=== PATIENT | female | born 1970 | race Caucasian/White ===

== ENCOUNTER 2020-05-27 10:24 | Outpatient (CLI) | payer BC, SELFPAY ==
--- NOTE | 2020-05-28 20:47 | ONC CON_ITS ---
Dr. Negron New Patient Note Patient: Namita Diaz Unit #: [id number]: 1970 Dicatated By: Abhijit Negron M.D.Date of Visit: May 27, 2020 Onc MED New Patient/Consult Referring Physician: Eduardo Mcleod Chief Complaint: Polycythemia rubra vera. History of Present Illness: This is a 50 year-old woman with polycythemia rubra vera, JAK2 mutation positive. She had initially been diagnosed with essential thrombocythemia in 2013. In June 2015 she underwent evaluation at [facility] in [facility]. Her CBC at that time showed elevated hemoglobin at 17.6 g with hematocrit 55.3%, white blood cell count 9700, and platelet count 735,000. Bone marrow aspiration/biopsy showed cellularity at 60 to 70%. Blasts were not increased. Reticulin and trichrome stains showed no increased fibrosis. Cytogenetics were normal. 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 The erythropoietin level was low at 1.0 mIU/mL. The findings were consistent with polycythemia rubra vera. Due to her young age, hydroxyurea was not recommended. She underwent red cell apheresis and she then began phlebotomies. In 2015 she did begin a trial of therapy with hydroxyurea, continued for less than a year because it made her feel worse. She was then interested in attempting a trial of therapy with pegylated interferon, but it was denied by her insurance carrier. She restarted hydroxyurea in January 2018, but continued only briefly due to side effects. Her management has otherwise been limited to phlebotomies and aspirin prophylaxis. The phlebotomies have been problematic due to associated iron deficiency. As such, her hematocrit levels have remained above target range. However, she has experienced no thromboembolic complications. Her other medical illnesses include hypertension, GERD, obstructive sleep apnea, restless leg syndrome, degenerative disease of the spine, and anxiety/depression. She is a non-smoker. She does report having some fatigue, but she says it is not debilitating. Her ECOG score is 1. She has good appetite. She has no fever or night sweats, and she does not complain of itching. She complains that her eyes stay bloodshot. She is on CPAP for the obstructive sleep apnea. She does not complain of shortness of breath, cough, or chest pain. Her acid reflux is managed adequately with [id number] omeprazole. She reports having frequent urination. She tends to get some bone pain in her legs when her blood count is too high. She has no other joint or bone pain. She has headache 2-3 times a week. She occasionally has dizziness. She has no focal neurologic symptoms. Past Medical History: Her medical history includes anxiety/depression, degenerative disease of the spine, hypertension, obstructive sleep apnea, polycythemia rubra vera, and restless leg syndrome. Past Surgical History: Her surgical/procedural history includes lumbar laminectomy with L5-S1 fusion in 2013, hysterectomy/bilateral salpingectomy-oophorectomy in 2013, and cervical laminectomy with C3, C4, and C5 fusion in 2009. Medications: Aspirin 1 Tablet (of 81 mg) Tablet, enteric coated Oral daily, Citalopram Hydrobromide 1 Tablet (of 40 mg) Oral daily, clonazePAM 1 Tablet (of 0.5 mg) Oral daily, hydroCHLOROthiazide 1 Tablet (of 25 mg) Oral daily, Omeprazole 1 Tablet (of 20 mg) Tablet, enteric coated Oral daily, rOPINIRole HCl 1 Tablet (of 1 mg) Oral t.i.d. Allergies: oxyCODONE HCl and Percocet. Social History: Ms. Diaz is . She is employed as a patient strategic accounts manager. She is a non-smoker. She has just occasional alcohol use. Family History: Father is alive at age 86. She does not know about his health. Mother is 82 and has hypertension. She has no siblings. A maternal aunt of lung cancer. Review Of Symptoms: Constitutional - She has some fatigue. She generally has been less active since she has been working at home. Her appetite is good. Her weight is up a little. No fever, night sweats, or hot flashes. She does not complain of itching. ECOG score is 0, Eyes - No change in vision, but she says her eyes stay bloodshot with the polycythemia, ENMT - No hearing loss or tinnitus. No sinus congestion/drainage. No mouth sores. No sore throat or difficulty swallowing, Hematologic/Lymphatic - She has easy bruising, Respiratory - No shortness of breath. No cough. No pleuritic pain or hemoptysis, Cardiovascular - No angina pain. No palpitations, Gastrointestinal - No nausea or vomiting. She has heartburn which she manages adequately with [id number] omeprazole. No diarrhea or constipation. No blood in the stool or black stools, Genitourinary (F) - No dysuria or hematuria. She has urinary frequency. No urgency or incontinence, Musculoskeletal - She has pain in her legs when her blood count is too high. She has no other joint or bone pain, Integumentary - No skin rash, Neurologic - She has been having headache 2 or 3 times a week. She occasionally or dizziness. No numbness or tingling. No other focal neurologic symptoms, Psychiatric - She has anxiety and depression, adequately managed. She does not sleep well. She is on CPAP. Vital Signs: Performed on May 27, 2020 10:55: 0, 32.67 (HIGH), 1.82 sq.m, 62.00 in, 98 %, 86 /min, 18 /min, 144/81 mm(hg) (HIGH), 98.8 F, and 178.6 lbs (HIGH). Physical Examination: Constitutional - She looks good generally, Eyes - Sclerae nonicteric. Conjunctivae clear, ENMT - No lesions noted in the oral cavity, Hematologic/Lymphatic - No cervical, clavicular, or axillary adenopathy, Respiratory - Lungs are clear with good air movement bilaterally, Cardiovascular - Heart rhythm is regular. There is no murmur, gallop, or rub noted, Abdomen - Soft and non-tender. Liver is not enlarged. I am not able to palpate the spleen. There is no abdominal mass or ascites noted and there is no inguinal adenopathy, Extremities - No edema. Dorsalis pedis pulses are palpable bilaterally, Integumentary - No rashes. No suspicious skin lesions noted, Neurologic - No focal neurologic deficits noted. Impression: 1. Patient with polycythemia rubra vera, JAK2 (V617F) mutation positive, initially diagnosed in June 2015, but apparently having evolved from essential thrombocythemia diagnosed in May 2014. 2. She has been managed primarily with phlebotomy and aspirin prophylaxis, hydroxyurea having been administered intermittently from October 2015 through August 2017, and then briefly in January 2018. 3. Her phlebotomies have been somewhat problematic due to associated iron deficiency. Her hemoglobin/hematocrit levels have been consistently above target range, but with no thromboembolic complications. Her other medical illnesses include: 4. Hypertension. 5. GERD. 6. Obstructive sleep apnea. 7. Degenerative disease of the spine. 8. Anxiety/depression. Plan: She is very knowledgeable regarding her condition and treatment options. For the time being she prefers to continue with her current phlebotomy regimen. She indicates that she may still be interested in attempting interferon therapy, particularly if and when a newer preparation becomes available (Rhopeg). We also talked about ruxolitinib, though I do not think that she would really meet criteria for it, as it does not appear that she actually failed on hydroxyurea. She indicates that she is interested in seeing an MPN specialist again, but someone that is located closer than [place]. As such, I will try and arrange for a referral to Dr. Stuart Riggs at [facility]. Signed By: Abhijit Negron M.D. <<Signature on File>>
== END 2020-05-27 10:25 | disposition home or self-care (01) ==
LOC: ONCMED 10:27
PROVIDERS: PCP Family Medicine; Visit Provider Internal Medicine Medical Oncology
DX: D45 Polycythemia vera (principal); I10 Essential (primary) hypertension; K21.9 Gastro-esophageal reflux disease without esophagitis; G47.33 Obstructive sleep apnea (adult) (pediatric); M47.9 Spondylosis, unspecified; F41.9 Anxiety disorder, unspecified; F32.9 Major depressive disorder, single episode, unspecified
CPT/HCPCS: 99204

== ENCOUNTER 2020-07-07 08:05 | Outpatient (CLI) | payer BC, SELFPAY ==
--- NOTE | 2020-07-07 08:09 | MM_ITS ---
WS: [id number] BILATERAL DIGITAL SCREENING MAMMOGRAPHY WITH CAD CLINICAL INFORMATION: SCREENING HISTORY: Screening mammogram. No current complaints. COMPARISON: October 21, 2015 TECHNIQUE: Bilateral CC and MLO views. FINDINGS: Scattered fibroglandular densities bilaterally. No suspicious focal mass, asymmetry, calcifications, or architectural distortion. No evidence of malignancy. MM/[place] [id number] IMPRESSION: BI-RADS: 1-Negative FOLLOW UP: 1 Year Follow-up Recommend return to annual screening mammography.
== END 2020-07-07 08:06 | disposition home or self-care (01) ==
LOC: RADSHAW 08:07
PROVIDERS: PCP Family Medicine; Visit Provider Family Medicine
DX: Z12.31 Encounter for screening mammogram for malignant neoplasm of breast (principal)
CPT/HCPCS: 77067

== ENCOUNTER 2020-07-12 07:04 | Outpatient (CLI) | payer BC, SELFPAY ==
--- NOTE | 2020-07-12 07:17 | US_ITS ---
WS: [id number] ULTRASOUND ABDOMEN LIMITED CLINICAL INFORMATION: EVAL LIVER AND SPLEEN, THROMBOCYTHEMIA COMPARISON: None. FINDINGS: Liver Size: Normal. Craniocaudal length: 15.0 cm. Echogenicity: Normal. Surface nodularity: None. Mass (size and location): None. Gallbladder Cholelithiasis Gallstones: Present Gallbladder sludge: None. Gallbladder wall thickening: None. Pericholecystic fluid: None. Sonographic Yun sign: Absent. Spleen Splenomegaly: Present Craniocaudal length: 16.1 cm. Abdominal aorta and IVC Visualized portions are normal. Ascites: None. US/US abdomen limited [id number] IMPRESSION: 1. Normal liver. 2. Splenomegaly measuring 16.1 CCM. 3. Cholelithiasis. No gallbladder wall thickening or pericholecystic fluid.
== END 2020-07-12 07:05 | disposition home or self-care (01) ==
PROVIDERS: PCP Family Medicine; Visit Provider Internal Medicine
DX: D47.3 Essential (hemorrhagic) thrombocythemia (principal); D45 Polycythemia vera; D50.9 Iron deficiency anemia, unspecified; R42 Dizziness and giddiness; R51.9 Headache, unspecified; R53.0 Neoplastic (malignant) related fatigue; R16.1 Splenomegaly, not elsewhere classified; K80.20 Calculus of gallbladder without cholecystitis without obstruction
CPT/HCPCS: 76705

== ENCOUNTER 2020-09-13 09:00 | Outpatient (CLI) | payer BC, SELFPAY ==
[2020-09-13 09:47] LABS: Basophils # 0.2 10^3/uL (0.0-0.1); Basophils % 1.2 %; Eosinophils # 0.8 10^3/uL (0.0-0.8); Hematocrit 48.3 % (37.0-47.0); Hemoglobin 13.7 g/dL (11.5-15.3); Lymphocytes # 1.5 10^3/uL (0.8-4.8); Lymphocytes % 11.3 %; Mean Corpuscular HGB Conc 28.4 g/dL (30.0-36.0); Mean Corpuscular Hemoglobin 20.4 pg (28.0-34.0); Mean Corpuscular Volume 71.8 fL (81-99); Mean Platelet Volume 9.8 fL (7.4-10.4); Monocytes # 0.3 10^3/uL (0.2-0.9); Monocytes % 2.6 %; Neutrophils # 10.12 10^3/uL (1.8-7.7); Neutrophils % 78.6 %; Nucleated Red Blood Cells % 0 %; Platelet Count 1062 10^3/cmm (130-400); Red Blood Count 6.73 10^6/uL (4.1-5.3); Red Cell Distribution Width 25.4 % (12.1-15.1); White Blood Count 12.9 10^3/uL (4.0-10.0)
[2020-09-13 10:06] LABS: Alanine Aminotransferase 16 U/L (0-33); Albumin Level 4.6 g/dL (3.5-5.2); Alkaline Phosphatase 99 IU/L (35-105); Anion Gap 13.7 (5-19); Aspartate Amino Transferase 27 U/L (0-32); Blood Urea Nitrogen 19 mg/dL (6-20); Calcium 9.1 mg/dL (8.5-10.5); Carbon Dioxide 30 mmol/L (22-29); Chloride 99 mmol/L (98-107); Ferritin 13 ng/mL (15-150); Globulin 3.1 g/dL (1.3-4.6); Glomerular Filtration Rate 75.9 mL/min (90-130); Glucose 102 mg/dL (65-115); Iron 43 ug/dL (37-145); Osmolality Calculated 290 mOsm/kg (285-295); Potassium 3.7 mmol/L (3.5-5.1); Sodium 139 mmol/L (136-145); Total Bilirubin 0.8 mg/dL (0.15-1.2); Total Iron Binding Capacity 390 mcg/dl; Total Protein 7.7 g/dL (6.6-8.7); Unsaturated Iron Binding 347 ug/dL (112-347)
--- NOTE | 2020-09-17 15:45 | ONC FU_ITS ---
Dr. Negron Patient Follow-Up Note Patient: Namita Diaz Unit #: [id number]: 1970 Dicatated By: Abhijit Negron M.D.Date of Visit:Sep 13, 2020 Onc Med Follow-up/Prog Note Chief Complaint: Polycythemia rubra vera. History of Present Illness: This is a 50 year-old woman with polycythemia rubra vera, JAK2 mutation positive. She had initially been diagnosed with essential thrombocythemia in 2013. In June 2015 she underwent evaluation at [facility] in [facility]. Her CBC at that time showed elevated hemoglobin at 17.6 g with hematocrit 55.3%, white blood cell count 9700, and platelet count 735,000. Bone marrow aspiration/biopsy showed cellularity at 60 to 70%. Blasts were not increased. Reticulin and trichrome stains showed no increased fibrosis. Cytogenetics were normal. 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 The erythropoietin level was low at 1.0 mIU/mL. The findings were consistent with polycythemia rubra vera. Due to her young age, hydroxyurea was not recommended. She underwent red cell apheresis and she then began phlebotomies. In 2015 she did begin a trial of therapy with hydroxyurea, continued for less than a year because it made her feel worse. She was then interested in attempting a trial of therapy with pegylated interferon, but it was denied by her insurance carrier. She restarted hydroxyurea in January 2018, but continued only briefly due to side effects. Her management was otherwise limited to phlebotomies and aspirin prophylaxis. The phlebotomies had been problematic due to associated iron deficiency. As such, her hematocrit levels had remained above target range. However, she had experienced no thromboembolic complications. I had seen her initially on 05/27/2020. Given her medication intolerances and complicated situation, I had recommended referral to a myeloproliferative disorder specialist. She was then seen by Dr. Stuart Riggs at [facility] on 07/24/2020. She did have a phlebotomy at the time of that visit. She had subsequently began treatment with ruxolitinib 10 mg twice daily. Her other medical illnesses include hypertension, GERD, obstructive sleep apnea, restless leg syndrome, degenerative disease of the spine, and anxiety/depression. She is a non-smoker. INTERIM HISTORY: She is seen for a follow-up visit. She thinks she might be feeling a little better since she started the ruxolitinib. She does complain that she feels tired out, but she still has normal activity. ECOG score is zero. Her appetite is good. Her weight is up a little. She does not have fever, night sweats, or itching. She has no shortness of breath, cough, or chest pain. She currently has no GI or complaints. She has no significant joint or bone pain. She has having restless leg symptoms, but just occasionally. She has had no severe episodes since she has been on the ruxolitinib. She has had a couple of headaches. She has had a little bit of dizziness, but just transiently. She has no focal neurologic symptoms. She reports having easy bruising, but that is the same. Medications: Aspirin 1 Tablet (of 81 mg) Tablet, enteric coated Oral daily, Citalopram Hydrobromide 1 Tablet (of 40 mg) Oral daily, clonazePAM 1 Tablet (of 0.5 mg) Oral daily, hydroCHLOROthiazide 1 Tablet (of 25 mg) Oral daily, Jakafi 1 Tablet (of 10 mg) Oral daily, Omeprazole 1 Tablet (of 20 mg) Tablet, enteric coated Oral daily, rOPINIRole HCl 1 Tablet (of 1 mg) Oral t.i.d. Allergies: oxyCODONE HCl and Percocet. Vital Signs: Performed on Sep 13, 2020 10:13 Height - 62.00 in Weight - 188.8 lbs (HIGH) BSA - 1.87 sq.m BMI - 34.53 (HIGH) Temperature - 98.0 F (LOW) Pulse - 72 /min Respiration - 18 /min BP - 147/83 mm(hg) (HIGH) O2 Sat - 98 % Pain - 0 Fatigue - 2 Physical Examination: Constitutional - She looks good generally, Eyes - Sclerae nonicteric. Conjunctivae clear, ENMT - No lesions noted in the oral cavity, Hematologic/Lymphatic - No cervical, clavicular, or axillary adenopathy, Respiratory - Lungs are clear with good air movement bilaterally, Cardiovascular - Heart rhythm is regular. There is no murmur, gallop, or rub noted, Abdomen - Soft. Liver is not enlarged. Spleen is not palpable. There is no abdominal mass or ascites noted and there is no inguinal adenopathy, Extremities - No edema, Neurologic - No focal neurologic deficits noted. Lab/Imaging: Test performed on Sep 13, 2020 09:20 Ferritin 13 ng/mL Iron 43 mcg/dL Sodium 139 mmol/L Iron Binding Capacity (TIBC) 390 mcg/dl Potassium 3.7 mmol/L % Iron Saturation 11.0 % Chloride 99 mmol/L CO2 30 mmol/L UIBC 347 mcg/dL Anion Gap 13.7 BUN 19 mg/dL Creatinine 0.8 mg/dL Cr Clearance (Est) 113.74 mL/min eGFR 75.9 mL/min Glucose 102 mg/dL Osmolality - Calculated 290 mOsm/kg Calcium 9.1 mg/dL Protein, Total 7.7 g/dL Albumin 4.6 g/dL Globulin 3.1 g/dL Bilirubin, Total 0.8 mg/dL ALT (SGPT) 16 U/L AST (SGOT) 27 U/L Alkaline Phosphatase 99 IU/L WBC 12.9 10 3/uL RBC 6.73 10 6/uL HGB 13.7 g/dL HCT 48.3 % MCV 71.8 fL MCH 20.4 pg MCHC 28.4 g/dL RDW 25.4 % Platelet Count 1062 10 3/cmm MPV 9.8 fL Neutrophils 10.12 10 3/uL Lymphocytes 1.5 10 3/uL Monocytes 0.3 10 3/uL Eosinophils 0.8 10 3/uL Basophils 0.2 10 3/uL Neutrophil % 78.6 % Lymphocyte % 11.3 % Monocyte % 2.6 % Eosinophil % 6.0 % Basophils % 1.2 % NRBC % 0 % Historic Problem List: 1. Polycythemia rubra vera, JAK2 (V617F) mutation positive, initially diagnosed in June 2015, but apparently having evolved from essential thrombocythemia diagnosed in May 2014. 2. She has been managed primarily with phlebotomy and aspirin prophylaxis, hydroxyurea having been administered intermittently from October 2015 through August 2017, and then briefly in January 2018. 3. She has had symptomatic iron deficiency associated with phlebotomies. 4. Hypertension. 5. GERD. 6. Obstructive sleep apnea. 7. Degenerative disease of the spine. 8. Anxiety/depression. Problems Addressed with this Encounter and Plan: Polycythemia rubra vera, JAK2 (V617F) mutation positive. She has symptomatic iron deficiency in association with phlebotomies. She has now started treatment with ruxolitinib 10 mg bid. She appears to be tolerating it well, but her blood counts have increased. With her hematocrit elevated at 48% she will be phlebotomized today. We have been in contact with Dr. Riggs's office and her ruxolitinib dosage will be adjusted and her followup there will be scheduled per their recommendation. Her blood counts will need to be rechecked at least monthly. Signed By: Abhijit Negron M.D. <<Signature on File>>
== END 2020-09-13 09:01 | disposition home or self-care (01) ==
LOC: ONCMED 09:02
PROVIDERS: PCP Family Medicine; Visit Provider Internal Medicine Medical Oncology
DX: D45 Polycythemia vera (principal); E61.1 Iron deficiency; Z79.899 Other long term (current) drug therapy; I10 Essential (primary) hypertension; K21.9 Gastro-esophageal reflux disease without esophagitis; G47.33 Obstructive sleep apnea (adult) (pediatric); F41.8 Other specified anxiety disorders
CPT/HCPCS: 36415; 80053; 82728; 83540; 83550; 85025; 99195; 99214

== ENCOUNTER 2020-11-29 11:30 | Outpatient (CLI) | payer BC, SELFPAY ==
[2020-11-29] MEDS: ferric carboxy (IVPB) 750 MG in sodium chloride 0.9% (100 ml) 100 ML 460 MG IV (11:57)
== END 2020-11-29 11:31 | disposition home or self-care (01) ==
LOC: ONCMED 11:32
PROVIDERS: PCP Family Medicine; Visit Provider Internal Medicine Hematology & Oncology
DX: D45 Polycythemia vera (principal)
CPT/HCPCS: 96365; J1439

== ENCOUNTER 2020-12-14 07:39 | Outpatient (CLI) | payer BC, SELFPAY ==
[2020-12-14 13:59] LABS: Basophils # 0.2 10^3/uL (0.0-0.1); Basophils % 1.2 %; Eosinophils % 5.7 %; Lymphocytes # 1.3 10^3/uL (0.8-4.8); Lymphocytes % 7.2 %; Mean Corpuscular HGB Conc 29.2 g/dL (30.0-36.0); Mean Corpuscular Hemoglobin 21.6 pg (28.0-34.0); Mean Corpuscular Volume 74.2 fL (81-99); Mean Platelet Volume 9.6 fL (7.4-10.4); Monocytes # 0.3 10^3/uL (0.2-0.9); Neutrophils # 14.44 10^3/uL (1.8-7.7); Neutrophils % 83.4 %; Nucleated Red Blood Cells % 0 %; Platelet Count 979 10^3/cmm (130-400); Red Blood Count 6.47 10^6/uL (4.1-5.3); Red Cell Distribution Width 29.2 % (12.1-15.1); White Blood Count 17.3 10^3/uL (4.0-10.0)
== END 2020-12-14 07:40 | disposition home or self-care (01) ==
PROVIDERS: PCP Family Medicine; Visit Provider Internal Medicine Medical Oncology
DX: D45 Polycythemia vera (principal)
CPT/HCPCS: 36415; 85025; 99195

== ENCOUNTER 2021-01-27 08:04 | Outpatient (CLI) | payer BC, SELFPAY ==
[2021-01-27 08:38] LABS: Basophils # 0.2 10^3/uL (0.0-0.1); Basophils % 1.3 %; Eosinophils % 6.5 %; Hematocrit 53.3 % (37.0-47.0); Hemoglobin 15.7 g/dL (11.5-15.3); Lymphocytes # 1.2 10^3/uL (0.8-4.8); Lymphocytes % 8.1 %; Mean Corpuscular HGB Conc 29.5 g/dL (30.0-36.0); Mean Corpuscular Hemoglobin 22.4 pg (28.0-34.0); Mean Platelet Volume 9.4 fL (7.4-10.4); Monocytes # 0.3 10^3/uL (0.2-0.9); Monocytes % 2.2 %; Neutrophils # 12.09 10^3/uL (1.8-7.7); Neutrophils % 81.2 %; Nucleated Red Blood Cells % 0 %; Platelet Count 919 10^3/cmm (130-400); Red Blood Count 7.01 10^6/uL (4.1-5.3); Red Cell Distribution Width 25.2 % (12.1-15.1); White Blood Count 14.9 10^3/uL (4.0-10.0)
--- NOTE | 2021-01-27 18:33 | ONC FU_ITS ---
Dr. Negron Patient Follow-Up Note Patient: Namita Diaz Unit #: [id number]: 1970 Dicatated By: Abhijit Negron M.D.Date of Visit:January 27, 2021 Onc Med Follow-up/Prog Note Chief Complaint: Polycythemia rubra vera. History of Present Illness: This is a 50 year-old woman with polycythemia rubra vera, JAK2 mutation positive. She had initially been diagnosed with essential thrombocythemia in 2013. In June 2015 she underwent evaluation at [facility] in [facility]. Her CBC at that time showed elevated hemoglobin at 17.6 g with hematocrit 55.3%, white blood cell count 9700, and platelet count 735,000. Bone marrow aspiration/biopsy showed cellularity at 60 to 70%. Blasts were not increased. Reticulin and trichrome stains showed no increased fibrosis. Cytogenetics were normal. 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 The erythropoietin level was low at 1.0 mIU/mL. The findings were consistent with polycythemia rubra vera. Due to her young age, hydroxyurea was not recommended. She underwent red cell apheresis and she then began phlebotomies. In 2015 she did begin a trial of therapy with hydroxyurea, continued for less than a year because it made her feel worse. She was then interested in attempting a trial of therapy with pegylated interferon, but it was denied by her insurance carrier. She restarted hydroxyurea in January 2018, but continued only briefly due to side effects. Her management was otherwise limited to phlebotomies and aspirin prophylaxis. The phlebotomies had been problematic due to associated iron deficiency. As such, her hematocrit levels had remained above target range. However, she had experienced no thromboembolic complications. I had seen her initially on 05/27/2020. Given her medication intolerances and complicated situation, I had recommended referral to a myeloproliferative disorder specialist. She was then seen by Dr. Stuart Riggs at [facility] on 07/24/2020. She did have a phlebotomy at the time of that visit. She had subsequently began treatment with ruxolitinib 10 mg twice daily. Her other medical illnesses include hypertension, GERD, obstructive sleep apnea, restless leg syndrome, degenerative disease of the spine, and anxiety/depression. She is a non-smoker. INTERIM HISTORY: I had seen her for followup on 09/13/2020. At that time she was starting to feel better. Her ruxolitinib dosage was subsequently increased to 15 mg twice daily. However, by the following month she opted to stop the ruxolitinib due to side effects, mainly weight gain, though she apparently had been responding well to it. She had a follow-up with Dr. Riggs in November. At that point she did not require phlebotomy. He had discussed the possibility of replenishing her iron stores due to her severe restless leg symptoms. He also discussed the possibility of participating in a clinical trial with hepcidin mimetic [id number]. Subsequent to that visit she returned here for parenteral iron replacement with a single dose of Injectafer, as she was intolerant of oral iron. She is seen for a follow-up visit. She says she has been feeling pretty bad. She describes her energy is nonexistent, though she has been working up to 50 hours a week. She says she just feels bad generally. Her ECOG score is 1. She has good appetite. She does not have fever or night sweats. She has had no mouth sores. She has no shortness of breath, cough, or chest pain. She has no GI or complaints. She sometimes has pain in her legs and she also sometimes has pain in her arms. Her restless leg symptoms have improved. She has occasional headache. She sometimes has dizziness. She has no numbness/paresthesia or other focal neurologic symptoms. She has been sleeping better taking trazodone at bedtime. Her depression is manageable with medication. Medications: Aspirin 1 Tablet (of 81 mg) Tablet, enteric coated Oral daily, Citalopram Hydrobromide 1 Tablet (of 40 mg) Oral daily, hydroCHLOROthiazide 1 Tablet (of 25 mg) Oral daily, Omeprazole 1 Tablet (of 20 mg) Tablet, enteric coated Oral daily, rOPINIRole HCl 1 Tablet (of 1 mg) Oral t.i.d. Allergies: oxyCODONE HCl and Percocet. Vital Signs: Performed on January 27, 2021 09:05 Height - 62.00 in Weight - 187.4 lbs (LOW) BSA - 1.86 sq.m BMI - 34.28 (HIGH) Temperature - 98.8 F Pulse - 74 /min Respiration - 18 /min BP - 122/81 mm(hg) O2 Sat - 98 % Pain - 0 Fatigue - 5 Physical Examination: Constitutional - She looks good generally, Eyes - Sclerae nonicteric. Conjunctivae clear, ENMT - No lesions noted in the oral cavity, Hematologic/Lymphatic - No cervical, clavicular, or axillary adenopathy, Respiratory - Lungs are clear with good air movement bilaterally, Cardiovascular - Heart rhythm is regular. There is no murmur, gallop, or rub noted, Abdomen - Soft. Liver is not enlarged. Spleen is not palpable. There is no abdominal mass or ascites noted and there is no inguinal adenopathy, Extremities - No edema, but she does have dependent discoloration of the lower legs and feet, Neurologic - No focal neurologic deficits noted. Lab/Imaging: Test performed on January 27, 2021 08:15 WBC 14.9 10 3/uL RBC 7.01 10 6/uL HGB 15.7 g/dL HCT 53.3 % MCV 76.0 fL MCH 22.4 pg MCHC 29.5 g/dL RDW 25.2 % Platelet Count 919 10 3/cmm MPV 9.4 fL Neutrophils 12.09 10 3/uL Lymphocytes 1.2 10 3/uL Monocytes 0.3 10 3/uL Eosinophils 1.0 10 3/uL Basophils 0.2 10 3/uL Neutrophil % 81.2 % Lymphocyte % 8.1 % Monocyte % 2.2 % Eosinophil % 6.5 % Basophils % 1.3 % NRBC % 0 % Problem List: 1. Polycythemia rubra vera, JAK2 (V617F) mutation positive, initially diagnosed in June 2015, but apparently having evolved from essential thrombocythemia diagnosed in May 2014. 2. She has had symptomatic iron deficiency associated with phlebotomies. 3. Hypertension. 4. GERD. 5. Obstructive sleep apnea. 6. Degenerative disease of the spine. 7. Anxiety/depression. Problems Addressed with this Encounter and Plan: 1. Patient with polycythemia rubra vera, JAK2 (V617F) mutation positive. She had previously been managed with phlebotomy due to intolerance for hydroxyurea. In July 2020 she began treatment with ruxolitinib 10 mg bid. She initially tolerated well, and in September 2020 her dosage was increased to 15 mg twice daily. By the following month she opted to stop treatment due to side effects, primarily weight gain, though she had been showing a good response. She returns now with her CBC showing pancytosis, including significantly elevated hemoglobin/hematocrit levels at 15.7 g at 53.3%. She will have a 1 unit phlebotomy today. Blood counts will be monitored every 2 weeks and she will be phlebotomized again as needed with her target hematocrit at < 45%. She is hoping to be eligible for the clinical trial at [facility], and she does have follow-up scheduled with Dr. Riggs in March. 2. She has had symptomatic iron deficiency associated with phlebotomies. Due to persistent worsening symptoms of restless leg syndrome, she was given parenteral iron replacement with a single infusion of Injectafer in November 2020. She has reported some improvement in her symptoms. Signed By: Abhijit Negron M.D. <<Signature on File>>
== END 2021-01-27 08:05 | disposition home or self-care (01) ==
PROVIDERS: PCP Family Medicine; Visit Provider Internal Medicine Medical Oncology
DX: D45 Polycythemia vera (principal); D50.9 Iron deficiency anemia, unspecified; I10 Essential (primary) hypertension; G47.33 Obstructive sleep apnea (adult) (pediatric); K21.9 Gastro-esophageal reflux disease without esophagitis; M47.9 Spondylosis, unspecified; F41.9 Anxiety disorder, unspecified; F32.9 Major depressive disorder, single episode, unspecified; Z79.899 Other long term (current) drug therapy; G25.81 Restless legs syndrome
CPT/HCPCS: 36415; 85025; 99195; 99214

== ENCOUNTER 2021-02-09 06:25 | Outpatient (CLI) | payer BC, SELFPAY ==
[2021-02-09 11:25] LABS: Basophils # 0.2 10^3/uL (0.0-0.1); Basophils % 1.2 %; Eosinophils # 0.9 10^3/uL (0.0-0.8); Hematocrit 50.3 % (37.0-47.0); Hemoglobin 14.7 g/dL (11.5-15.3); Lymphocytes # 1.4 10^3/uL (0.8-4.8); Lymphocytes % 8.9 %; Mean Corpuscular HGB Conc 29.2 g/dL (30.0-36.0); Mean Corpuscular Hemoglobin 22.2 pg (28.0-34.0); Mean Corpuscular Volume 75.9 fL (81-99); Mean Platelet Volume 9.6 fL (7.4-10.4); Monocytes # 0.3 10^3/uL (0.2-0.9); Monocytes % 1.8 %; Neutrophils # 12.55 10^3/uL (1.8-7.7); Neutrophils % 81.5 %; Nucleated Red Blood Cells % 0 %; Platelet Count 1016 10^3/cmm (130-400); Red Blood Count 6.63 10^6/uL (4.1-5.3); Red Cell Distribution Width 23.3 % (12.1-15.1); White Blood Count 15.4 10^3/uL (4.0-10.0)
== END 2021-02-09 06:26 | disposition home or self-care (01) ==
LOC: ONCMED 06:27
PROVIDERS: PCP Family Medicine; Visit Provider Internal Medicine Medical Oncology
DX: D45 Polycythemia vera (principal)
CPT/HCPCS: 85025; 99195

== ENCOUNTER 2021-03-09 10:19 | Outpatient (CLI) | payer BC, SELFPAY ==
[2021-03-09 10:47] LABS: Basophils # 0.2 10^3/uL (0.0-0.1); Basophils % 1.1 %; Eosinophils # 0.8 10^3/uL (0.0-0.8); Eosinophils % 5.7 %; Hematocrit 49.7 % (37.0-47.0); Hemoglobin 14.3 g/dL (11.5-15.3); Lymphocytes # 1.3 10^3/uL (0.8-4.8); Lymphocytes % 8.7 %; Mean Corpuscular HGB Conc 28.8 g/dL (30.0-36.0); Mean Corpuscular Hemoglobin 21.4 pg (28.0-34.0); Mean Corpuscular Volume 74.5 fL (81-99); Mean Platelet Volume 9.6 fL (7.4-10.4); Monocytes # 0.3 10^3/uL (0.2-0.9); Monocytes % 2.1 %; Neutrophils # 11.89 10^3/uL (1.8-7.7); Nucleated Red Blood Cells % 0 %; Platelet Count 936 10^3/cmm (130-400); Red Blood Count 6.67 10^6/uL (4.1-5.3); White Blood Count 14.5 10^3/uL (4.0-10.0)
== END 2021-03-09 10:20 | disposition home or self-care (01) ==
LOC: ONCMED 10:21
PROVIDERS: PCP Family Medicine; Visit Provider Internal Medicine Medical Oncology
DX: D45 Polycythemia vera (principal); Z79.899 Other long term (current) drug therapy
CPT/HCPCS: 36415; 85025; 99195

== ENCOUNTER 2021-04-13 10:28 | Outpatient (CLI) | payer BC, SELFPAY ==
[2021-04-13 11:02] LABS: Basophils # 0.2 10^3/uL (0.0-0.1); Basophils % 1.4 %; Eosinophils % 6.6 %; Hematocrit 51.3 % (37.0-47.0); Hemoglobin 14.6 g/dL (11.5-15.3); Lymphocytes # 1.3 10^3/uL (0.8-4.8); Lymphocytes % 8.6 %; Mean Corpuscular HGB Conc 28.5 g/dL (30.0-36.0); Mean Corpuscular Volume 73.9 fL (81-99); Mean Platelet Volume 9.7 fL (7.4-10.4); Monocytes # 0.4 10^3/uL (0.2-0.9); Monocytes % 2.6 %; Neutrophils # 11.71 10^3/uL (1.8-7.7); Neutrophils % 80.3 %; Nucleated Red Blood Cells % 0 %; Platelet Count 993 10^3/cmm (130-400); Red Blood Count 6.94 10^6/uL (4.1-5.3); White Blood Count 14.6 10^3/uL (4.0-10.0)
== END 2021-04-13 10:29 | disposition home or self-care (01) ==
LOC: ONCMED 10:30
PROVIDERS: PCP Family Medicine; Visit Provider Internal Medicine Medical Oncology
DX: D45 Polycythemia vera (principal); Z79.899 Other long term (current) drug therapy
CPT/HCPCS: 36415; 85025

== ENCOUNTER 2021-04-15 06:12 | Outpatient (CLI) | payer BC, SELFPAY | END 2021-04-15 06:13 | disposition home or self-care (01) | LOC: ONCMED 06:13 | PROVIDERS: PCP Family Medicine; Visit Provider Internal Medicine Hematology & Oncology | DX: D45 Polycythemia vera (principal); Z79.899 Other long term (current) drug therapy | CPT/HCPCS: 99195 ==

== ENCOUNTER 2021-04-27 06:09 | Outpatient (CLI) | payer BC, SELFPAY ==
[2021-04-27 11:12] LABS: Basophils # 0.2 10^3/uL (0.0-0.1); Basophils % 1.3 %; Eosinophils % 6.1 %; Hematocrit 47.6 % (37.0-47.0); Hemoglobin 13.5 g/dL (11.5-15.3); Lymphocytes # 1.3 10^3/uL (0.8-4.8); Mean Corpuscular HGB Conc 28.4 g/dL (30.0-36.0); Mean Corpuscular Hemoglobin 20.5 pg (28.0-34.0); Mean Corpuscular Volume 72.2 fl (81-99); Mean Platelet Volume 9.6 fL (7.4-10.4); Monocytes # 0.3 10^3/uL (0.2-0.9); Neutrophils # 12.98 10^3/uL (1.8-7.7); Nucleated Red Blood Cells % 0 %; Platelet Count 957 10^3/cmm (130-400); Red Blood Count 6.59 10^6/uL (4.1-5.3); Red Cell Distribution Width 19.8 % (12.1-15.1); White Blood Count 15.8 10^3/uL (4.0-10.0)
== END 2021-04-27 06:10 | disposition home or self-care (01) ==
LOC: ONCMED 06:14
PROVIDERS: PCP Family Medicine; Visit Provider Internal Medicine Medical Oncology
DX: D45 Polycythemia vera (principal); Z79.899 Other long term (current) drug therapy
CPT/HCPCS: 36415; 85025; 99195

== ENCOUNTER 2021-07-07 13:19 | Outpatient (CLI) | payer BC, SELFPAY ==
[2021-07-07 13:53] LABS: Basophils # 0.1 10^3/uL (0.0-0.1); Basophils % 1.4 %; Eosinophils # 0.8 10^3/uL (0.0-0.8); Eosinophils % 7.5 %; Hematocrit 49.1 % (37.0-47.0); Hemoglobin 13.7 g/dL (11.5-15.3); Lymphocytes # 1.2 10^3/uL (0.8-4.8); Lymphocytes % 11.3 %; Mean Corpuscular HGB Conc 27.9 g/dL (30.0-36.0); Mean Corpuscular Hemoglobin 20.1 pg (28.0-34.0); Mean Corpuscular Volume 71.9 fl (81-99); Mean Platelet Volume 9.2 fL (7.4-10.4); Monocytes # 0.2 10^3/uL (0.2-0.9); Monocytes % 1.9 %; Neutrophils # 7.85 10^3/uL (1.8-7.7); Neutrophils % 77.4 %; Nucleated Red Blood Cells % 0 %; Platelet Count 521 10^3/cmm (130-400); Red Blood Count 6.83 10^6/uL (4.1-5.3); Red Cell Distribution Width 23.1 % (12.1-15.1); White Blood Count 10.1 10^3/uL (4.0-10.0)
== END 2021-07-07 13:20 | disposition home or self-care (01) ==
LOC: ONCMED 13:23
PROVIDERS: PCP Family Medicine; Visit Provider Internal Medicine Medical Oncology
DX: D45 Polycythemia vera (principal)
CPT/HCPCS: 36415; 85025

== ENCOUNTER 2021-07-18 15:44 | Outpatient (CLI) | payer BC, SELFPAY | END 2021-07-18 15:45 | disposition home or self-care (01) | LOC: ONCMED 15:45 | PROVIDERS: PCP Family Medicine; Visit Provider Internal Medicine Hematology & Oncology | DX: D45 Polycythemia vera (principal) | CPT/HCPCS: 99195 ==

== ENCOUNTER 2021-09-22 08:06 | Outpatient (CLI) | payer BC, SELFPAY ==
[2021-09-22 08:56] LABS: Basophils # 0.1 10^3/uL (0.0-0.1); Basophils % 1.1 %; Eosinophils # 0.8 10^3/uL (0.0-0.8); Eosinophils % 6.7 %; Hematocrit 48.7 % (37.0-47.0); Hemoglobin 13.9 g/dL (11.5-15.3); Lymphocytes # 1.3 10^3/uL (0.8-4.8); Mean Corpuscular HGB Conc 28.5 g/dL (30.0-36.0); Mean Corpuscular Hemoglobin 20.6 pg (28.0-34.0); Mean Platelet Volume 9.6 fL (7.4-10.4); Monocytes # 0.3 10^3/uL (0.2-0.9); Monocytes % 2.4 %; Neutrophils # 9.57 10^3/uL (1.8-7.7); Neutrophils % 78.4 %; Nucleated Red Blood Cells % 0 %; Platelet Count 769 10^3/cmm (130-400); Red Blood Count 6.76 10^6/uL (4.1-5.3); Red Cell Distribution Width 20.3 % (12.1-15.1); White Blood Count 12.2 10^3/uL (4.0-10.0)
--- NOTE | 2021-09-22 12:36 | ONC FU_ITS ---
Dr. Negron Patient Follow-Up Note Patient: Namita Diaz Unit #: [id number]: 1970 Dicatated By: Abhijit Negron M.D.Date of Visit:Sep 22, 2021 Onc Med Follow-up/Prog Note Chief Complaint: Polycythemia rubra vera. History of Present Illness: This is a 51 year-old woman with polycythemia rubra vera, JAK2 mutation positive. She had initially been diagnosed with essential thrombocythemia in 2013. In June 2015 she underwent evaluation at [facility] in [facility]. Her CBC at that time showed elevated hemoglobin at 17.6 g with hematocrit 55.3%, white blood cell count 9700, and platelet count 735,000. Bone marrow aspiration/biopsy showed cellularity at 60 to 70%. Blasts were not increased. Reticulin and trichrome stains showed no increased fibrosis. Cytogenetics were normal. 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 The erythropoietin level was low at 1.0 mIU/mL. The findings were consistent with polycythemia rubra vera. Due to her young age, hydroxyurea was not recommended. She underwent red cell apheresis and she then began phlebotomies. In 2015 she did begin a trial of therapy with hydroxyurea, continued for less than a year because it made her feel worse. She was then interested in attempting a trial of therapy with pegylated interferon, but it was denied by her insurance carrier. She restarted hydroxyurea in January 2018, but continued only briefly due to side effects. Her management was otherwise limited to phlebotomies and aspirin prophylaxis. The phlebotomies had been problematic due to associated iron deficiency. As such, her hematocrit levels had remained above target range. However, she had experienced no thromboembolic complications. I had seen her initially on 05/27/2020. Given her medication intolerances and complicated situation, I had recommended referral to a myeloproliferative disorder specialist. She was then seen by Dr. Stuart Riggs at [facility] on 07/24/2020. She did have a phlebotomy at the time of that visit. She had subsequently began treatment with ruxolitinib 10 mg twice daily. I had seen her for followup on 09/13/2020. At that time she was starting to feel better. Her ruxolitinib dosage was subsequently increased to 15 mg twice daily. However, by the following month she opted to stop the ruxolitinib due to side effects, mainly weight gain, though she apparently had been responding well to it. She had a follow-up with Dr. Riggs in November. At that point she did not require phlebotomy. He had discussed the possibility of replenishing her iron stores due to her severe restless leg symptoms. He also discussed the possibility of participating in a clinical trial with hepcidin mimetic PTG-300. Subsequent to that visit she returned here for parenteral iron replacement with a single dose of Injectafer, as she was intolerant of oral iron. Her other medical illnesses include hypertension, GERD, obstructive sleep apnea, restless leg syndrome, degenerative disease of the spine, and anxiety/depression. She is a non-smoker. INTERIM HISTORY: As of her follow-up visit on 01/27/2021 she was still not feeling good generally. Her hemoglobin was significantly elevated at 15.7 g with hematocrit 53.3%, and she restarted phlebotomies. She is seen now for a scheduled visit. She is now back on hydroxyurea at 500 mg daily. She is scheduled to see Dr. Riggs next week and she is expecting to start treatment with ropeginterferon alpha-2b (Besremi), which has now been approved for use in [place]. She says her energy has mediocre, but she is working and she is doing all of her normal activities. ECOG score 0. She has good appetite. She has no fever or night sweats. She has not had sore mouth or throat. She does not complain of cough, and she has not been having shortness of breath or chest pain. She has no GI or complaints. She has no significant joint or bone pain. She does not complain of headache. Recently she has been having episodes of vertigo at least once or twice a day, but not lasting more than a minute. She has no focal neurologic symptoms. She has not experienced any abnormal bruising or bleeding. Medications: Aspirin 1 Tablet (of 81 mg) Tablet, enteric coated Oral daily, Citalopram Hydrobromide 1 Tablet (of 40 mg) Oral daily, hydroCHLOROthiazide 1 Tablet (of 25 mg) Oral daily, Omeprazole 1 Tablet (of 20 mg) Tablet, enteric coated Oral daily, rOPINIRole HCl 1 Tablet (of 1 mg) Oral t.i.d. Allergies: oxyCODONE HCl and Percocet. Vital Signs: Performed on Sep 22, 2021 10:32 Height - 62.00 in Weight - 187.2 lbs (LOW) BSA - 1.86 sq.m BMI - 34.24 (HIGH) Temperature - 97.1 F (LOW) Pulse - 82 /min Respiration - 18 /min BP - 125/85 mm(hg) O2 Sat - 97 % Pain - 0 Fatigue - 5 Physical Examination: Constitutional - She looks good generally, Eyes - Sclerae nonicteric. Conjunctivae clear, ENMT - No lesions noted in the oral cavity, Hematologic/Lymphatic - No cervical, clavicular, or axillary adenopathy, Respiratory - Lungs are clear with good air movement bilaterally, Cardiovascular - Heart rhythm is regular. There is no murmur, gallop, or rub noted, Abdomen - Soft. Liver is not enlarged. Spleen is palpable just below the costal margin. There is no abdominal mass or ascites noted and there is no inguinal adenopathy, Extremities - No edema, Neurologic - No focal neurologic deficits noted. Lab/Imaging: Test performed on Sep 22, 2021 08:36 WBC 12.2 10 3/uL RBC 6.76 10 6/uL HGB 13.9 g/dL HCT 48.7 % MCV 72.0 fl MCH 20.6 pg MCHC 28.5 g/dL RDW 20.3 % Platelet Count 769 10 3/cmm MPV 9.6 fL Neutrophils 9.57 10 3/uL Lymphocytes 1.3 10 3/uL Monocytes 0.3 10 3/uL Eosinophils 0.8 10 3/uL Basophils 0.1 10 3/uL Neutrophil % 78.4 % Lymphocyte % 11.0 % Monocyte % 2.4 % Eosinophil % 6.7 % Basophils % 1.1 % NRBC % 0 % Problem List: 1. Polycythemia rubra vera, JAK2 (V617F) mutation positive. 2. She has had symptomatic iron deficiency associated with phlebotomies. 3. Hypertension. 4. GERD. 5. Obstructive sleep apnea. 6. Degenerative disease of the spine. 7. Anxiety/depression. Problems Addressed with this Encounter and Plan: Patient with polycythemia rubra vera, JAK2 (V617F) mutation positive. It was initially diagnosed in June 2015, but it appeared to have evolved from pre-existing essential thrombocythemia, diagnosed in May 2014. She had previously been managed with phlebotomy due to intolerance for hydroxyurea. In July 2020 she began treatment with ruxolitinib 10 mg bid. She initially tolerated it well, and in September 2020 her dosage was increased to 15 mg twice daily. By the following month she opted to stop treatment due to side effects, primarily weight gain, though she had been showing a good response. As of her follow-up visit in January 2021 she restarted phlebotomies with her hemoglobin/hematocrit levels significantly elevated. She had subsequently restarted hydroxyurea at 500 mg daily. She has been feeling somewhat better generally. She will be phlebotomized again today, as her hemoglobin/hematocrit are still above target levels. She will have follow-up at [facility] next week, and at that point she is expecting to begin treatment with ropeginterferon alpha-2b. She will be seen here again per recommendations from Dr. Riggs. Signed By: Abhijit Negron M.D. <<Signature on File>>
== END 2021-09-22 08:07 | disposition home or self-care (01) ==
LOC: ONCMED 08:09
PROVIDERS: PCP Family Medicine; Visit Provider Internal Medicine Medical Oncology
DX: D45 Polycythemia vera (principal); D50.9 Iron deficiency anemia, unspecified; I10 Essential (primary) hypertension; K21.9 Gastro-esophageal reflux disease without esophagitis; G47.33 Obstructive sleep apnea (adult) (pediatric); M47.9 Spondylosis, unspecified; F41.9 Anxiety disorder, unspecified; F32.A Depression, unspecified; Z79.82 Long term (current) use of aspirin; Z79.899 Other long term (current) drug therapy
CPT/HCPCS: 36415; 85025; 99195; 99215

== ENCOUNTER 2021-11-16 13:50 | Outpatient (CLI) | payer BC, SELFPAY ==
[2021-11-16 14:56] LABS: Basophils # 0.1 10^3/uL (0.0-0.1); Basophils % 0.8 %; Eosinophils # 1.1 10^3/uL (0.0-0.8); Eosinophils % 6.7 %; Hematocrit 43.7 % (37.0-47.0); Hemoglobin 12.2 g/dL (11.5-15.3); Lymphocytes # 1.6 10^3/uL (0.8-4.8); Lymphocytes % 10.1 %; Mean Corpuscular HGB Conc 27.9 g/dL (30.0-36.0); Mean Corpuscular Hemoglobin 19.2 pg (28.0-34.0); Mean Corpuscular Volume 68.7 fl (81-99); Mean Platelet Volume 9.6 fL (7.4-10.4); Monocytes # 0.4 10^3/uL (0.2-0.9); Monocytes % 2.5 %; Neutrophils # 12.64 10^3/uL (1.8-7.7); Neutrophils % 79.5 %; Nucleated Red Blood Cells % 0 %; Platelet Count 963 10^3/cmm (130-400); Red Blood Count 6.36 10^6/uL (4.1-5.3); Red Cell Distribution Width 19.5 % (12.1-15.1); White Blood Count 15.9 10^3/uL (4.0-10.0)
== END 2021-11-16 13:51 | disposition home or self-care (01) ==
PROVIDERS: PCP Family Medicine; Visit Provider Internal Medicine Medical Oncology
DX: D69.6 Thrombocytopenia, unspecified (principal)
CPT/HCPCS: 36415; 85025

== ENCOUNTER 2021-12-14 12:50 | Outpatient (CLI) | payer BC, SELFPAY ==
[2021-12-14 13:18] LABS: Basophils # 0.1 10^3/uL (0.0-0.1); Basophils % 0.5 %; Eosinophils # 0.8 10^3/uL (0.0-0.8); Eosinophils % 5.6 %; Hematocrit 44.9 % (37.0-47.0); Hemoglobin 12.6 g/dL (11.5-15.3); Lymphocytes # 1.6 10^3/uL (0.8-4.8); Lymphocytes % 10.9 %; Mean Corpuscular HGB Conc 28.1 g/dL (30.0-36.0); Mean Corpuscular Hemoglobin 19.1 pg (28.0-34.0); Mean Corpuscular Volume 68.2 fl (81-99); Mean Platelet Volume 9.4 fL (7.4-10.4); Monocytes # 0.3 10^3/uL (0.2-0.9); Monocytes % 2.1 %; Neutrophils # 11.77 10^3/uL (1.8-7.7); Neutrophils % 80.3 %; Nucleated Red Blood Cells % 0 %; Platelet Count 935 10^3/cmm (130-400); Red Blood Count 6.58 10^6/uL (4.1-5.3); Red Cell Distribution Width 22.4 % (12.1-15.1); White Blood Count 14.7 10^3/uL (4.0-10.0)
== END 2021-12-14 12:51 | disposition home or self-care (01) ==
PROVIDERS: PCP Family Medicine; Visit Provider Internal Medicine Hematology & Oncology
DX: D45 Polycythemia vera (principal)
CPT/HCPCS: 36415; 85025

== ENCOUNTER 2022-01-11 09:53 | Oncology outpatient (recurring) (ONCR) | payer BC, SELFPAY ==
[2022-01-11 11:26] LABS: Basophils # 0.1 10^3/uL (0.0-0.1); Basophils % 0.5 %; Eosinophils # 0.9 10^3/uL (0.0-0.8); Eosinophils % 7.3 %; Hematocrit 51.8 % (37.0-47.0); Hemoglobin 14.4 g/dL (11.5-15.3); Lymphocytes # 1.4 10^3/uL (0.8-4.8); Lymphocytes % 11.2 %; Mean Corpuscular HGB Conc 27.8 g/dL (30.0-36.0); Mean Corpuscular Hemoglobin 19.4 pg (28.0-34.0); Mean Corpuscular Volume 69.7 fl (81-99); Monocytes # 0.2 10^3/uL (0.2-0.9); Monocytes % 1.9 %; Neutrophils % 78.4 %; Nucleated Red Blood Cells % 0 %; Platelet Count 763 10^3/cmm (130-400); Red Blood Count 7.43 10^6/uL (4.1-5.3); Red Cell Distribution Width 23.9 % (12.1-15.1); White Blood Count 12.5 10^3/uL (4.0-10.0)
[2022-01-11 12:00] VITALS: BP 117/80; PULSE 73; RESP 18; TEMP 36.8; O2SAT 98
== END 2022-02-07 23:59 | disposition home or self-care (01) ==
PROVIDERS: PCP Family Medicine; Visit Provider Internal Medicine Medical Oncology
DX: D45 Polycythemia vera (principal)
CPT/HCPCS: 36415; 85025; 99195

== ENCOUNTER 2022-02-08 07:43 | Outpatient (CLI) | payer BC, SELFPAY ==
--- NOTE | 2022-02-08 07:49 | MM_ITS ---
WS: [id number] Bilateral screening 3D tomosynthesis digital mammogram, 02/08/2022 Clinical Data: SCREENING Comparison: 07/07/2020, 10/21/2015, 09/04/2013. Findings: The breast parenchymal pattern shows fat replacement. No spiculated masses or clustered calcification s are seen. There are no secondary signs of carcinoma. MM/[place] [id number] Impression: 1. Negative bilateral mammogram unchanged. 2. Recommend annual screening mammograms. BIRADS: 1-Negative FOLLOW UP: 1 Year Follow-up The CAD electric distribution checker was used.
== END 2022-02-08 07:44 | disposition home or self-care (01) ==
LOC: RAD 07:46
PROVIDERS: PCP Family Medicine; Visit Provider Family Medicine
DX: Z12.31 Encounter for screening mammogram for malignant neoplasm of breast (principal)
CPT/HCPCS: 77063; 77067

== ENCOUNTER 2022-03-08 15:56 | Oncology outpatient (recurring) (ONCR) | payer BC, SELFPAY ==
[2022-03-08 17:12] LABS: Basophils # 0.1 10^3/uL (0.0-0.1); Basophils % 0.4 %; Eosinophils # 0.9 10^3/uL (0.0-0.8); Eosinophils % 7.6 %; Hematocrit 45.4 % (37.0-47.0); Hemoglobin 13.1 g/dL (11.5-15.3); Lymphocytes # 1.5 10^3/uL (0.8-4.8); Lymphocytes % 13.1 %; Mean Corpuscular HGB Conc 28.9 g/dL (30.0-36.0); Mean Corpuscular Hemoglobin 19.3 pg (28.0-34.0); Mean Corpuscular Volume 66.8 fl (81-99); Mean Platelet Volume 9.6 fL (7.4-10.4); Monocytes # 0.3 10^3/uL (0.2-0.9); Neutrophils # 8.44 10^3/uL (1.8-7.7); Neutrophils % 75.4 %; Nucleated Red Blood Cells % 0 %; Platelet Count 675 10^3/cmm (130-400); Red Cell Distribution Width 21.2 % (12.1-15.1); White Blood Count 11.2 10^3/uL (4.0-10.0)
== END 2022-03-09 23:59 | disposition home or self-care (01) ==
PROVIDERS: PCP Family Medicine; Visit Provider Internal Medicine Medical Oncology
DX: D45 Polycythemia vera (principal)
CPT/HCPCS: 85025

== ENCOUNTER 2022-04-17 13:55 | Oncology outpatient (recurring) (ONCR) | payer BC, SELFPAY ==
[2022-04-17 14:36] LABS: Basophils % 0.4 %; Eosinophils # 0.7 10^3/uL (0.0-0.8); Eosinophils % 7.3 %; Hemoglobin 13.2 g/dL (11.5-15.3); Lymphocytes # 1.3 10^3/uL (0.8-4.8); Lymphocytes % 13.1 %; Mean Corpuscular HGB Conc 28.7 g/dL (30.0-36.0); Mean Corpuscular Hemoglobin 19.8 pg (28.0-34.0); Mean Corpuscular Volume 69.2 fl (81-99); Mean Platelet Volume 9.3 fL (7.4-10.4); Monocytes # 0.3 10^3/uL (0.2-0.9); Monocytes % 2.7 %; Neutrophils # 7.74 10^3/uL (1.8-7.7); Nucleated Red Blood Cells % 0 %; Platelet Count 564 10^3/cmm (130-400); Red Blood Count 6.65 10^6/uL (4.1-5.3); Red Cell Distribution Width 22.2 % (12.1-15.1); White Blood Count 10.2 10^3/uL (4.0-10.0)
== END 2022-05-10 23:59 | disposition home or self-care (01) ==
PROVIDERS: PCP Family Medicine; Visit Provider Internal Medicine Medical Oncology
DX: D75.1 Secondary polycythemia (principal)
CPT/HCPCS: 36415; 85025; 99195

== ENCOUNTER 2022-06-06 14:54 | Oncology outpatient (recurring) (ONCR) | payer BC, SELFPAY ==
[2022-06-06 15:15] LABS: Basophils % 0.4 %; Eosinophils # 0.8 10^3/uL (0.0-0.8); Eosinophils % 8.4 %; Hematocrit 44.7 % (37.0-47.0); Hemoglobin 12.8 g/dL (11.5-15.3); Lymphocytes # 1.2 10^3/uL (0.8-4.8); Lymphocytes % 11.7 %; Mean Corpuscular HGB Conc 28.6 g/dL (30.0-36.0); Mean Corpuscular Hemoglobin 20.3 pg (28.0-34.0); Mean Platelet Volume 9.6 fL (7.4-10.4); Monocytes # 0.3 10^3/uL (0.2-0.9); Monocytes % 2.7 %; Neutrophils # 7.48 10^3/uL (1.8-7.7); Neutrophils % 76.4 %; Nucleated Red Blood Cells % 0 %; Platelet Count 576 10^3/cmm (130-400); Red Cell Distribution Width 21.3 % (12.1-15.1); White Blood Count 9.8 10^3/uL (4.0-10.0)
== END 2022-06-09 23:59 | disposition home or self-care (01) ==
PROVIDERS: PCP Family Medicine; Visit Provider Internal Medicine Medical Oncology
DX: D75.1 Secondary polycythemia (principal)
CPT/HCPCS: 36415; 85025

== ENCOUNTER 2022-06-20 15:00 | Oncology outpatient (recurring) (ONCR) | payer BC, SELFPAY ==
[2022-06-20 15:24] VITALS: BP 140/93; PULSE 75; RESP 18; TEMP 36.8; O2SAT 98
[2022-06-20 15:39] LABS: Basophils # 0.1 10^3/uL (0.0-0.1); Basophils % 0.6 %; Eosinophils # 0.6 10^3/uL (0.0-0.8); Eosinophils % 6.4 %; Hematocrit 44.3 % (37.0-47.0); Hemoglobin 12.9 g/dL (11.5-15.3); Lymphocytes # 1.1 10^3/uL (0.8-4.8); Lymphocytes % 11.3 %; Mean Corpuscular HGB Conc 29.1 g/dL (30.0-36.0); Mean Corpuscular Hemoglobin 20.3 pg (28.0-34.0); Mean Corpuscular Volume 69.9 fl (81-99); Mean Platelet Volume 9.7 fL (7.4-10.4); Monocytes # 0.3 10^3/uL (0.2-0.9); Monocytes % 2.8 %; Neutrophils # 7.77 10^3/uL (1.8-7.7); Neutrophils % 78.5 %; Nucleated Red Blood Cells % 0 %; Platelet Count 513 10^3/cmm (130-400); Red Blood Count 6.34 10^6/uL (4.1-5.3); White Blood Count 9.9 10^3/uL (4.0-10.0)
[2022-06-20 15:55] VITALS: BP 140/78; PULSE 75; RESP 18; TEMP 36.8; O2SAT 98
--- NOTE | 2022-06-20 15:57 | PC.NURSE ---
Dr Negron aware of the lab draw today with results reviewed. HCt 44.3 No phlebotomy required with the results reviewed with patient. copy given . She is aware of the follow up.mm
== END 2022-07-10 23:59 | disposition home or self-care (01) ==
LOC: ONCMED 15:02
PROVIDERS: PCP Family Medicine; Visit Provider Internal Medicine Medical Oncology
DX: D75.1 Secondary polycythemia (principal)
CPT/HCPCS: 85025

== ENCOUNTER 2022-07-27 14:56 | Oncology outpatient (recurring) (ONCR) | payer BC, SELFPAY ==
[2022-07-27 15:15] LABS: Basophils % 0.5 %; Eosinophils # 0.7 10^3/uL (0.0-0.8); Eosinophils % 7.5 %; Hematocrit 45.6 % (37.0-47.0); Lymphocytes # 1.2 10^3/uL (0.8-4.8); Lymphocytes % 13.4 %; Mean Corpuscular HGB Conc 28.5 g/dL (30.0-36.0); Mean Corpuscular Hemoglobin 20.1 pg (28.0-34.0); Mean Corpuscular Volume 70.6 fl (81-99); Mean Platelet Volume 9.6 fL (7.4-10.4); Monocytes # 0.2 10^3/uL (0.2-0.9); Monocytes % 2.6 %; Neutrophils # 6.62 10^3/uL (1.8-7.7); Neutrophils % 75.4 %; Nucleated Red Blood Cells % 0 %; Platelet Count 471 10^3/cmm (130-400); Red Blood Count 6.46 10^6/uL (4.1-5.3); Red Cell Distribution Width 20.7 % (12.1-15.1); White Blood Count 8.8 10^3/uL (4.0-10.0)
== END 2022-08-09 23:59 | disposition home or self-care (01) ==
PROVIDERS: PCP Family Medicine; Visit Provider Internal Medicine Medical Oncology
DX: D45 Polycythemia vera
CPT/HCPCS: 36415; 85025; 99195

== ENCOUNTER 2025-04-15 09:58 | Outpatient (CLI) | payer BC, SELFPAY ==
--- NOTE | 2025-04-15 10:06 | MM_ITS ---
WS: [id number] BILATERAL SCREENING DIGITAL TOMOSYNTHESIS MAMMOGRAM WITH CAD HISTORY: SCREEN COMPARISON: None available. Bilateral CC and MLO views with tomosynthesis and synthetic mammography submitted. Computer aided detection analyzed. Breast composition: There are scattered areas of fibroglandular density. No suspicious masses, microcalcifications or architectural distortion. Benign scattered calcifications in each breast. MM/MM scr BI tomosynthesis [id number] IMPRESSION: BI-RADS: 2 - Benign. FOLLOW UP: 1 Year Follow-up
== END 2025-04-15 09:59 | disposition home or self-care (01) ==
LOC: RAD 09:59
PROVIDERS: PCP Family Medicine; Visit Provider Nurse Practitioner Family
DX: Z12.31 Encounter for screening mammogram for malignant neoplasm of breast (principal); R92.323 Mammographic fibroglandular density, bilateral breasts
CPT/HCPCS: 77063; 77067

== ENCOUNTER 2025-04-27 07:41 | Outpatient (CLI) | payer BC, SELFPAY ==
--- NOTE | 2025-04-27 07:46 | US_ITS ---
WS: [id number] Gallbladder and right upper quadrant ultrasound, Clinical Data: ABNORMAL LEVELS OF OTHER SERUM ENZYMES Comparison: Abdominal ultrasound, 07/12/2020 Findings: The gallbladder shows a large stone. The wall measures 0.4 cm with no pericholecystic fluid. The common bile duct is 0.5 cm and there are no intrahepatic ductal abnormalities. Liver shows no cysts, masses or dilated intrahepatic ducts. The portal vein shows hepatopetal flow with normal diameter of 1.1 cm. The pancreas is not obscured by overlying bowel gas and no cyst, pseudocyst, or evidence of pancreatitis is noted. Right kidney measures 10.2 cm and no cyst, masses or hydronephrosis can be seen. The aorta and inferior vena cava show no vascular abnormalities. US/US abdomen limited [id number] Impression: 1. Large gallstone neck of gallbladder. 2. Thickened gallbladder wall which can indicate acute and/or chronic cholecyst itis.
== END 2025-04-27 07:42 | disposition home or self-care (01) ==
LOC: RAD 07:42
PROVIDERS: PCP Nurse Practitioner Family; Visit Provider Nurse Practitioner Family
DX: R74.8 Abnormal levels of other serum enzymes (principal); K80.20 Calculus of gallbladder without cholecystitis without obstruction; R93.3 Abnormal findings on diagnostic imaging of other parts of digestive tract
CPT/HCPCS: 76705

== ENCOUNTER 2025-05-20 14:22 | Outpatient (CLI) | payer BC, SELFPAY ==
[2025-05-20 14:59] LABS: Anion Gap 16.9 (5-19); Blood Urea Nitrogen 16 mg/dL (6-20); Calcium 9.2 mg/dL (8.5-10.5); Carbon Dioxide 25 mmol/L (22-29); Chloride 97 mmol/L (98-107); Glucose 115 mg/dL (65-115); Osmolality Calculated 282 mOsm/kg (285-295); Potassium 3.9 mmol/L (3.5-5.1); Sodium 135 mmol/L (136-145)
== END 2025-05-20 14:23 | disposition home or self-care (01) ==
PROVIDERS: PCP Nurse Practitioner Family; Visit Provider Nurse Practitioner Family
DX: E87.6 Hypokalemia (principal)
CPT/HCPCS: 36415; 80048

== ENCOUNTER 2025-07-25 07:41 | Day surgery (SDC) | payer BC, SELFPAY ==
[2025-07-25] VITALS (15 sets, daily range): BP systolic 100–192; BP diastolic 63–121; PULSE 74–115; RESP 16–18; TEMP 36.6–36.9; O2SAT 89–97; BMI 40.2
--- NOTE | 2025-07-25 08:22 | W.ED.ABDPA2 ---
HPI - Abdominal Pain General: Chief Complaint: Abdominal Pain Stated Complaint: RT mid abd pain Time Seen by Provider: 07/25/25 08:14 History of Present Illness: 55-year-old female presents emergency room with complaint of abdominal pain she localizes to the epigastrium and the right upper quadrant she has a known history of cholelithiasis has had some mild Анна cystitis in the past she has seen general surgery and opted to delay definitive care. Patient has not noticed anything that exacerbates or relieves it. She has had intermittent episodes since she last seen general surgery however the episode that began last night that extended to this morning is lasting much longer than what she typically experiences. No hematemesis cough tenderness denies dysuria urgency or frequency no fever no previous abdominal surgeries. Associated Symptoms: Reports nausea; Denies chills, coffee ground emesis, dysuria, fever(s), hematochezia, hematemesis, melena and vomiting Related Data Home Medications ?Medication ?Instructions ?Recorded ?Confirmed citalopram 40 mg tablet 40 mg PO QDAY 05/20/25 07/25/25 hydrochlorothiazide 25 mg tablet 25 mg PO QAM 05/20/25 07/25/25 ropeginterferon [id number] 500 500 mcg SUBCUT .1 x month 05/20/25 07/25/25 mcg/mL subcutaneous syringe (Besremi) ropinirole 1 mg tablet 1 mg PO BID 05/20/25 07/25/25 trazodone 100 mg tablet 100 mg PO BEDTIME 05/20/25 07/25/25 Allergies Allergy/AdvReac Type Severity Reaction Status Date / Time oxycodone Allergy Unknown Verified 05/20/25 13:47 Review of Systems Const: Denies: fever(s) or chills Card: Denies: chest pain Resp: Denies: dyspnea GI: Reports: abdominal pain and nausea; Denies: vomiting, hematemesis, coffee ground emesis, hematochezia or melena : Denies: dysuria, urinary frequency or urinary urgency Musc: Denies: neck pain or back pain Skin/Breast: Denies: rash PFSH ED PFSH: Family History Mother Hypertension Social History Smoking and tobacco/nicotine status: never used tobacco/nicotine Physical Exam Const: COMMON NORMALS: no acute distress GENERAL APPEARANCE: cooperative and comfortable ORIENTATION/CONSCIOUSNESS: Yes awake, Yes oriented to person, Yes oriented to place and Yes oriented to time HENMT: COMMON NORMALS: normocephalic, atraumatic and hearing grossly normal bilaterally HEAD & SCALP: normocephalic and atraumatic Resp: COMMON NORMALS: normal respiratory effort, No retractions, No use of accessory muscles and clear to auscultation bilaterally AUSCULTATION: clear to auscultation bilaterally Cardio: COMMON NORMALS: regular rate, regular rhythm and No murmurs present (Cardio) RATE: regular rate RHYTHM: regular rhythm GI: COMMON NORMALS: No hepatosplenomegaly present AUSCULTATION: Yes normoactive bowel sounds PALPATION: Yes Tenderness to palpation present (GI) Details: RUQ, No Guarding due to palpation present (GI) and Yes No hepatosplenomegaly present Extremity: COMMON NORMALS: normal to inspection, capillary refill normal, no clubbing, cyanosis or edema, no calf tenderness and no pedal edema Neuro: SENSORIUM/ORIENTATION: Yes oriented to person, Yes oriented to place and Yes oriented to time Skin: COMMON NORMALS: no rashes or lesions noted GENERAL SKIN EXAM: no rashes or lesions noted Course Vital Signs: Vital signs: Vital Signs Temperature 97.8 F 07/25/25 07:51 Pulse Rate 84 07/25/25 09:38 Respiratory Rate 16 07/25/25 09:38 Blood Pressure 129/79 07/25/25 09:38 Pulse Oximetry 94 07/25/25 09:38 Oxygen Delivery Me thod Room Air 07/25/25 09:38 MDM - Abdominal Pain Medical Decision Making Patient presents emergency room with complaints of right upper quadrant abdominal pain. Evaluate for acute cholecystitis upper GI bleed colitis. Laboratory test ordered including CBC CMP UA ultrasound gallbladder Ultrasound shows acute cholecystitis mild elevation in transaminases and alk phos no elevation in T. bili or lipase. Patient given Zosyn pain medications further discussed with general surgery they concur they are planning to take patient to the OR for acute cholecystectomy. She last ate 15+ hours ago. Medical Records I reviewed the patient's medical records. Lab Data I reviewed the patient's lab results. 07/25/25 08:23 07/25/25 08:23 Labs/Radiology: Radiology Impressions Gallbladder Ultrasound 07/25/25 08:23 IMPRESSION: 1. Cholelithiasis with distended gallbladder. The gallbladder wall is thickened and edematous. Possible trace pericholecystic fluid. The sonographic Yun sign is negative. 2. Mild dilatation of the common bile duct. Consider MRCP if clinically warranted. 3. Hepatic steatosis. Laboratory Results WBC 5.75 10^3/uL (3.29-11.43) 07/25/25 08:23 RBC 4.97 10^6/uL (3.85-5.65) 07/25/25 08:23 Hgb 12.80 g/dL (11.27-16.99) 07/25/25 08:23 Hct 40.9 % (36-47) 07/25/25 08:23 MCV 82.3 fl (85-98) L 07/25/25 08:23 MCH 25.8 pg (27-33) L 07/25/25 08:23 MCHC 31.3 g/dL (30-55) 07/25/25 08:23 RDW 17.3 % (12.1-15.1) H 07/25/25 08:23 Plt Count 248 10^3/cmm (157-399) 07/25/25 08:23 MPV 9.6 fL (7.4-10.4) 07/25/25 08:23 Neut % (Auto) 75.9 % 07/25/25 08:23 Lymph % (Auto) 15.7 % 07/25/25 08:23 Hutchinson % (Auto) 4.5 % 07/25/25 08:23 Eos % (Auto) 3.1 % 07/25/25 08:23 Baso % (Auto) 0.3 % 07/25/25 08:23 Neut # (Auto) 4.36 10^3/uL (1.8-7.7) 07/25/25 08:23 Lymph # (Auto) 0.9 10^3/uL (0.8-4.8) 07/25/25 08:23 Hutchinson # (Auto) 0.3 10^3/uL (0.2-0.9) 07/25/25 08:23 Eos # (Auto) 0.2 10^3/uL (0.0-0.8) 07/25/25 08:23 Baso # (Auto) 0.0 10^3/uL (0.0-0.1) 07/25/25 08:23 Nucleated RBC % (auto) 0 % 07/25/25 08:23 Nucleated RBCs # 0.0 /100WBC 07/25/25 08:23 Sodium 139 mmol/L (136-145) 07/25/25 08:23 Potassium 3.0 mmol/L (3.5-5.1) L 07/25/25 08:23 Chloride 98 mmol/L (98-107) 07/25/25 08:23 Carbon Dioxide 30 mmol/L (22-29) H 07/25/25 08:23 Anion Gap 14.0 (5-19) 07/25/25 08:23 BUN 16 mg/dL (6-20) 07/25/25 08:23 Creatinine 0.8 mg/dL (0.5-0.9) 07/25/25 08:23 GFR Calculation 74.5 mL/min (90-130) L 07/25/25 08:23 Glucose 139 mg/dL (65-115) H 07/25/25 08:23 Calculated Osmolality 291 mOsm/kg (285-295) 07/25/25 08:23 Calcium 9.0 mg/dL (8.5-10.5) 07/25/25 08:23 Total Bilirubin 0.6 mg/dL (0.15-1.2) 07/25/25 08:23 AST 88 U/L (0-32) H 07/25/25 08:23 ALT 82 U/L (0-33) H 07/25/25 08:23 Alkaline Phosphatase 156 U/L (35-105) H 07/25/25 08:23 Total Protein 8.1 g/dL (6.6-8.7) 07/25/25 08:23 Albumin 4.2 g/dL (3.5-5.2) 07/25/25 08:23 Globulin 3.9 g/dL (1.3-4.6) 07/25/25 08:23 Lipase 23 U/L (13-60) 07/25/25 08:23 Urine Color Yellow (Yellow) 07/25/25 09:36 Urine Appearance Clear (CLEAR) 07/25/25 09:36 Urine pH 6.0 (5-7) 07/25/25 09:36 Ur Specific Crowder 1.018 (1.005-1.030) 07/25/25 09:36 Urine Protein Trace (Negative) A 07/25/25 09:36 Urine Glucose (UA) Negative (Normal) 07/25/25 09:36 Urine Ketones Negative (Negative) 07/25/25 09:36 Urine Blood Negative (Negative) 07/25/25 09:36 Urine Nitrate Negative (Negative) 07/25/25 09:36 Urine Bilirubin Negative (Negative) 07/25/25 09:36 Urine Urobilinogen 1.0 mg/dL (Negative) 07/25/25 09:36 Ur Leukocyte Esterase Trace (Negative) A 07/25/25 09:36 Urine RBC 0-2 /hpf (0-2) 07/25/25 09:36 Urine WBC 0-5 /hpf (0-5) 07/25/25 09:36 Ur Squamous Epith Cells 6-10 /hpf (0-5) 07/25/25 09:36 Amorphous Sediment Not Reportable 07/25/25 09:36 Urine Bacteria None seen /hpf (NONE) 07/25/25 09:36 Hyaline Casts 0-4 /lpf H 07/25/25 09:36 All radiology interpretation(s) finalized by discharge Discharge Plan Discharge Condition: Stable Prescriptions: No Action ropinirole 1 mg tablet 1 mg PO BID citalopram 40 mg tablet 40 mg PO QDAY trazodone 100 mg tablet 100 mg PO BEDTIME hydrochlorothiazide 25 mg tablet 25 mg PO QAM Besremi 500 mcg/mL syringe 500 mcg SUBCUT .1 x month Rx Instructions: on the 6th Referrals: Miriam Man NP [Primary Care Provider, Unknown] Patient Instructions: Abdominal Pain (ED) Print Language: Malay Coding Level of Care Code ED Tray Room Worker for Noel Fitzpatrick
--- NOTE | 2025-07-25 08:23 | USR_ITS ---
PROCEDURE INFORMATION: Exam: US Abdomen, Limited; Right Upper Quadrant Exam date and time: 07/25/2025 8:58 AM Age: 55 years old Clinical indication: Abdominal pain; Localized; Right upper quadrant (ruq); Additional info: Right upper quadrant abdominal pain history of cholelithiasi TECHNIQUE: Imaging protocol: Real time ultrasound of the abdomen with image documentation. Limited exam focused on the right upper quadrant. COMPARISON: US abdomen limited [id number] 04/27/2025 7:51 AM FINDINGS: The hepatic parenchyma is echogenic. The visualized IVC and aorta are grossly normal in caliber. The common bile duct measures 0.7 cm. Cholelithiasis with distended gallbladder. The gallbladder wall is thickened and edematous. Possible trace pericholecystic fluid. The right kidney measures 10.5 cm. No suspicious mass or hydronephrosis. The pancreas is partially obscurred by overlying bowel gas. The visualized pancreas is unremarkable. US/US gall bladder [id number] IMPRESSION: 1. Cholelithiasis with distended gallbladder. The gallbladder wall is thickened and edematous. Possible trace pericholecystic fluid. The sonographic Yun sign is negative. 2. Mild dilatation of the common bile duct. Consider MRCP if clinically warranted. 3. Hepatic steatosis.
[2025-07-25] MEDS: morphine 4 mg/mL SDV 1 mL IVP (08:35)
[2025-07-25] MEDS: ondansetron 2 mg/ML SDV 2 mL 4 MG IVP (08:35)
[2025-07-25 08:39] LABS: Hematocrit 40.9 % (36-47); Hemoglobin 12.80 g/dL (11.27-16.99); Mean Corpuscular HGB Conc 31.3 g/dL (30-55); Mean Corpuscular Hemoglobin 25.8 pg (27-33); Mean Corpuscular Volume 82.3 fl (85-98); Nucleated Red Blood Cells % 0 %; Platelet Count 248 10^3/cmm (157-399); Red Blood Count 4.97 10^6/uL (3.85-5.65); White Blood Count 5.75 10^3/uL (3.29-11.43)
[2025-07-25 09:04] LABS: Alanine Aminotransferase 82 U/L (0-33); Albumin Level 4.2 g/dL (3.5-5.2); Alkaline Phosphatase 156 U/L (35-105); Anion Gap 14.0 (5-19); Aspartate Amino Transferase 88 U/L (0-32); Blood Urea Nitrogen 16 mg/dL (6-20); Calcium 9.0 mg/dL (8.5-10.5); Carbon Dioxide 30 mmol/L (22-29); Chloride 98 mmol/L (98-107); Globulin 3.9 g/dL (1.3-4.6); Glucose 139 mg/dL (65-115); Lipase 23 U/L (13-60); Osmolality Calculated 291 mOsm/kg (285-295); Potassium 3.0 mmol/L (3.5-5.1); Sodium 139 mmol/L (136-145); Total Protein 8.1 g/dL (6.6-8.7)
[2025-07-25 09:49] LABS: Glucose Urine UA Negative (Normal); Nitrate Urine Negative (Negative); Specific Gravity, Urine 1.018 (1.005-1.030)
[2025-07-25 09:54] LABS: Add Urine Microscopic? YES
[2025-07-25] MEDS: piperacillin-tazobactam 3.375 GM in sodium chloride 0.9% (plus) 50 ML IV (10:06)
--- NOTE | 2025-07-25 10:40 | PM.HP ---
Providers/Chief Complaint Admitting Physician: General Surgery Primary Care Provider: Miriam Man NP Chief Complaint: RT mid abd pain History of Present Illness Namita Diaz is a 55 year old female who presents to the hospital with abdominal pain in the right upper quadrant persistent over the last 8 hours. She is known to my service as she presented to the clinic in May for gallstones that were found incidentally, since then she has been having right upper quadrant pain and it has been worsening over time. Today wide mouth's unremarkable my elevation of LFTs and a ultrasound that shows evidence of gallbladder wall thickening and some pericholecystic fluid concerning for the possibility of an early acute cholecystitis Review of Systems General: Reports: 10 or more systems reviewed and unremarkable except in HPI and below Medications/Allergies Home Medications ?Medication ?Instructions ?Recorded ?Confirmed ?Last Taken ?Type citalopram 40 mg tablet 40 mg PO QDAY 05/20/25 07/25/25 07/24/25 History hydrochlorothiazide 25 mg tablet 25 mg PO QAM 05/20/25 07/25/25 07/24/25 History ropeginterferon [id number] 500 500 mcg SUBCUT .1 x month 05/20/25 07/25/25 07/16/25 History mcg/mL subcutaneous syringe (Besremi) ropinirole 1 mg tablet 1 mg PO BID 05/20/25 07/25/25 07/25/25 History trazodone 100 mg tablet 100 mg PO BEDTIME 05/20/25 07/25/25 07/24/25 History Allergies Allergy/AdvReac Type Severity Reaction Status Date / Time oxycodone Allergy Unknown Verified 05/20/25 13:47 PFSH Acute PFSH: Family History Mother Hypertension Social History Smoking and tobacco/nicotine status: never used tobacco/nicotine Vitals/I&O/Wt Last Vital Signs Temp 97.8 F 07/25/25 07:51 Pulse 84 07/25/25 09:38 Resp 16 07/25/25 09:38 BP 129/79 07/25/25 09:38 Pulse Ox 94 07/25/25 09:38 O2 Del Method Room Air 07/25/25 09:38 07/24/25 07/25/25 07/25/25 22:59 06:59 14:59 Intake Total 1000 / 1000 Balance 1000 / 1000 Weight last 48 hrs Weight 220 lb Physical Exam Narrative: Abdomen is soft, there is some tenderness to palpation in the right upper quadrant, no Yun sign Data 07/25/25 08:23 07/25/25 08:23 A&P Assessment and plan 1. Acute cholecystitis: Plan: After a complete history, physical examination and review of all available clinical data I have offered the patient laparoscopic cholecystectomy for acute cholecystitis. All the risk and benefits of the procedure were discussed with the patient including the risks of bleeding, infection, damage to surrounding structures including liver, duodenum, colon, risk of injuring bile ducts requiring extensive surgery at higher level of care facility, risk of retained stones, bile leak, bili Shavonne, need for subtotal cholecystectomy, hernia and wound related complications, need to conversion to open procedure. Patient shows understanding and would like to proceed. Lap kasi will be booked for today, patient will likely be able to transition home after surgery. PDMP PDMP Reviewed: Not Reviewed Attestations Medical Necessity Statement*: Lap kasi today possible discharge after surgery. Coding Level of Care Code Acute Code for [facility] Diagnoses Acute cholecystitis K81.0
--- NOTE | 2025-07-25 11:10 | ANES.PREANE2 ---
Pre-Anesthetic Assessment Height/Weight: Height 1.57 m Weight 99.79 kg Temp Pulse Resp BP Pulse Ox O2 Del Method 98.4 F 86 16 137/76 92 Room Air 07/25/25 11:02 07/25/25 11:02 07/25/25 11:02 07/25/25 11:02 07/25/25 11:02 07/25/25 11:02 Preop Diagnosis: acute cholecystitis Operation Date: 07/25/25 10:55 Proposed Procedures p Laparoscopic Cholecystectomy/ possible open(Not Applicable) - Ha Reed MD Familial anesthetic complications: none Was Beta Tosin taken within 24 hours: N/A Was Clonidine taken within 24 hours: N/A Last intake: coffee at 0400 07/25, no solids >10hr Social No alcohol and No tobacco Exam alert, oriented x 3 and clear to auscultation bilaterally Airway Mallampati: Class III Dentition: full and other (small mouth opening) History/ROS No significant history except as noted Pulmonary None reported CV/HEM Hypertension polycythemia vera None reported Hepatic pt states she has had elevated LFTs due to taking ropeginterferon but since her last dosage adjustment her LFTs have improved. GI None reported Metabolic None reported Musc/skel None reported Neuropsych None reported Anesthetic Plan ASA status: 2E Anesthesia: Anesthesia Evaluation and General Risk of > 500 ml blood loss (7ml/kg in children): Yes, adequate IV access and fluids planned Medications/Allergies Home Medications ?Medication ?Instructions ?Recorded ?Confirmed ?Last Taken ?Type citalopram 40 mg tablet 40 mg PO QDAY 05/20/25 07/25/25 07/24/25 History hydrochlorothiazide 25 mg tablet 25 mg PO QAM 05/20/25 07/25/25 07/24/25 History ropeginterferon [id number] 500 500 mcg SUBCUT .1 x month 05/20/25 07/25/25 07/16/25 History mcg/mL subcutaneous syringe (Besremi) ropinirole 1 mg tablet 1 mg PO BID 05/20/25 07/25/25 07/25/25 History trazodone 100 mg tablet 100 mg PO BEDTIME 05/20/25 07/25/25 07/24/25 History amoxicillin 875 mg-potassium 1 tab PO BID 5 days #10 tabs 07/25/25 Unknown Rx clavulanate 125 mg tablet ondansetron 4 mg disintegrating 4 mg PO Q8H PRN nausea and 07/25/25 Unknown Rx tablet vomiting 5 days #14 tabs tramadol 50 mg tablet 50 mg PO Q8H PRN pain 5 days #14 07/25/25 Unknown Rx tabs Allergies Allergy/AdvReac Type Severity Reaction Status Date / Time oxycodone Allergy Unknown Verified 05/20/25 13:47 PFSH Anesthesia Family History Mother Hypertension Social History Smoking and tobacco/nicotine status: never used tobacco/nicotine Data Anesthesia 07/25/25 08:23 07/25/25 08:23 Short CBC 07/25/25 Range/Units 08:23 WBC 5.75 (3.29-11.43) 10^3/uL Hgb 12.80 (11.27-16.99) g/dL Hct 40.9 (36-47) % MCV 82.3 L (85-98) fl Plt Count 248 (157-399) 10^3/cmm Neut % (Auto) 75.9 % Neut # (Auto) 4.36 (1.8-7.7) 10^3/uL BMP 07/25/25 08:23 Sodium 139 Potassium 3.0 L Chloride 98 Carbon Dioxide 30 H BUN 16 Creatinine 0.8 Glucose 139 H Calcium 9.0 Liver Function 07/25/25 Range/Units 08:23 Total Bilirubin 0.6 (0.15-1.2) mg/dL AST 88 H (0-32) U/L ALT 82 H (0-33) U/L Alkaline Phosphatase 156 H (35-105) U/L Albumin 4.2 (3.5-5.2) g/dL Urine 07/25/25 Range/Units 09:36 Urine Color Yellow (Yellow) Urine Appearance Clear (CLEAR) Urine pH 6.0 (5-7) Ur Specific [place] 1.018 (1.005-1.030) Urine Protein Trace A (Negative) Urine Glucose (UA) Negative (Normal) Urine Ketones Negative (Negative) Urine Nitrate Negative (Negative) Urine Bilirubin Negative (Negative) Ur Leukocyte Esterase Trace A (Negative) Urine RBC 0-2 (0-2) /hpf Urine WBC 0-5 (0-5) /hpf
--- NOTE | 2025-07-25 12:50 | SUR.OPER ---
1249 was updated of surgical status. hd
[2025-07-25] MEDS: lidocaine-epi 1% 20 mL INJ INJECTION (13:00)
[2025-07-25] MEDS: BUPivacaine 0.25% INJ 30 mL INJECTION (13:00)
--- NOTE | 2025-07-25 13:17 | PM.OP ---
Operative Report Date of procedure: July 25, 2025 Pre-op diagnosis: Acute cholecystitis Post-op diagnosis: Same Post-op findings: Inflamed gallbladder with pericholecystic edema, large stone impacted in the neck of the gallbladder. Procedure done: Laparoscopic cholecystectomy Specimens removed/disposition: Gallbladder and contents Surgeon: Ha Reed MD Banking Paralegal: YADIRA OR STaff Complications: None apparent Brief History: 55-year-old female who presents to the hospital with acute cholecystitis. After discussion of risk benefits documented in my preop note decided proceed to the OR for laparoscopic possible open cholecystectomy Procedure: Patient was brought into the OR, she was placed in a supine position. General anesthesia was given. The abdomen was prepped and draped in the usual sterile fashion. A timeout was conducted. I accessed the abdomen via a 5 mm Optiview port in the left upper quadrant. Initial pneumoperitoneum was obtained and no evidence of visceral injury during entry was noted. At 12 mm trocar was placed in the supraumbilical position under direct visualization. Additional 5 mm trocars were placed in the epigastrium right upper quadrant and right flank under direct visualization. The gallbladder was strongly distended, decompression needle was used to evacuate 60 cc of bile which appeared clear consistent with hydropic gallbladder. The gallbladder was grasped from the fundus and retracted cephalad, adhesions from the gastrocolic omentum to the gallbladder were taken down bluntly and with electrocautery. I then grasped the infundibulum and retracted in the inferolateral direction exposing the hepatocystic triangle. The peritoneum anterior to the hepatocystic triangle was opened with electrocautery, I carried this opening in the medial and lateral direction to the edges of the liver and then on the sides of the gallbladder to allow for better exposure. With careful blunt dissection as well as electrocautery I was able to encircle the cystic duct and artery, I also elevated lower third of the gallbladder from the liver bed, thus creating a critical view of safety. The cystic duct and artery were double clipped proximally and single clipped distally and transected. The gallbladder was removed from the liver bed using electrocautery. The gallbladder was retrieved in an Endo Catch bag via the umbilical trocar site. The liver bed and clips were inspected the area was hemostatic, there was no evidence of bile leak the clips appeared to be in good position. The liver bed was irrigated and suctioned. The umbilical trocar was removed and umbilical trocar site was closed with a 0 Vicryl Grady-Monse suture passer under direct visualization. The epigastrium right upper quadrant right flank trocars were removed under direct visualization, the left upper quadrant trocar was used to evacuate the pneumoperitoneum and subsequently removed. Local anesthesia was infiltrated. Hemostasis was achieved from the trocar sites. The wounds were closed in layers using #3-0 Vicryl for the subcutaneous tissue #4 Monocryl for the skin. At the end of the procedure all counts were correct, the patient tolerated well the procedure was transferred to the PACU in stable condition.
--- NOTE | 2025-07-25 14:41 | ANE.PACU2 ---
Inpatient post-anesthesia follow up: Airway intact: Yes Vital signs: Temperature 97.9 F Pulse Rate 87 Respiratory Rate 18 Blood Pressure 116/70 Pulse Oximetry 92 Oxygen Delivery Me thod Room Air Oxygen Flow Rate 2 Fraction of Inspir ed Oxygen Hydration adequate: Yes Nausea and vomiting: No Pain level: 1 Mental status: Baseline
== END 2025-07-25 10:37 | disposition home or self-care (01) ==
LOC: ER 10:28 → OR 10:37
PROVIDERS: Emergency Provider Family Medicine; PCP Nurse Practitioner Family; Visit Provider Surgery
PROC: 0FT44ZZ Resection of Gallbladder, Percutaneous Endoscopic Approach (ICD-10-PCS; CPT 47562; principal; 2025-07-25 10:45)
DX: K80.10 Calculus of gallbladder with chronic cholecystitis without obstruction (principal); I10 Essential (primary) hypertension
CPT/HCPCS: 47562; 36415; 51702; 76705; 80053; 81001; 83690; 85025; 88304; A4216; J0330; J1100; J1171; J1885; J2250; J2270; J2405; J2543; J2704; J3010; J3490; J7030; J9999; Q0162